=== PATIENT | female | born 1995 ===

== ENCOUNTER 2018-09-04 13:26 | Emergency (ER) | payer OTHER ==
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
[2018-09-04 15:30] VITALS: BP 118/74
[2018-09-04] MEDS ORDERED: CYCL10TA29 PO (15:30)
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
== END 2018-09-04 16:18 ==
LOC: ER 13:37
DX: S62.347A Nondisplaced fracture of base of fifth metacarpal bone, left hand, initial encounter for closed fracture (principal); V44.6XXA Car passenger injured in collision with heavy transport vehicle or bus in traffic accident, initial encounter
CPT/HCPCS: 71046; 71100; 72125; 81001; 81025; 99001; 99284

== ENCOUNTER → 2018-09-04 | Outpatient (CLI) | payer OTHER ==
[~2018-09-04] MED LIST: CYCL10TA29 PO
== END ==
LOC: AMB 12:25
PROVIDERS: ATTEND Nurse Practitioner
DX: S60.222A Contusion of left hand, initial encounter (principal); R60.9 Edema, unspecified; V49.9XXA Car occupant (driver) (passenger) injured in unspecified traffic accident, initial encounter; Y92.411 Interstate highway as the place of occurrence of the external cause
CPT/HCPCS: A0425; A0429